=== PATIENT | female | born 1950 | race Asian ===

== ENCOUNTER 2017-01-21 08:30 | Day surgery (SDC) | payer MEDICARE, OTHER ==
[~2017-01-21] VITALS: Ht 165.1 cm; Wt 77.3 kg
[~2017-01-21 08:30] MED LIST: ATEN50TA PO; CALC-51 PO; DICLOFENAC SODIUM 0.1% 2.5 ML OPHTHALMIC SOLUTION OS ONE; FentaNYL CITRATE-PF 100 MCG/2 ML VIAL IVP ONE; LOSA25TA21 PO; MIDAZOLAM HCL 2 MG/2 ML VIAL IVP ONE; MOXIFLOXACIN HCL 0.5% 3 ML OPHTHALMIC SOLUTION OS ONE; RINGERS SOLUTION,LACTATED 500 ML IV ONE; SIMV-260 PO
[2017-01-21] MEDS ORDERED: MOXIFLOXACIN HCL 0.5% 3 ML OPHTHALMIC SOLUTION ONE (09:03)
[2017-01-21] MEDS ORDERED: DICLOFENAC SODIUM 0.1% 2.5 ML OPHTHALMIC SOLUTION ONE (09:03)
[2017-01-21] MEDS ORDERED: PHENYLEPHRINE HCL 2.5% 2 ML OPHTHALMIC SOLUTION ONE (09:03)
[2017-01-21] MEDS ORDERED: TROPICAMIDE 1% 2 ML OPHTHALMIC SOLUTION ONE (09:03)
[2017-01-21] MEDS: PHENYLEPHRINE HCL 2.5% 2 ML OPHTHALMIC SOLUTION OS SCH ×2 (09:33→09:37)
[2017-01-21] MEDS: TROPICAMIDE 1% 2 ML OPHTHALMIC SOLUTION OS SCH ×2 (09:33→09:37)
[2017-01-21] MEDS ORDERED: HYALURONATE SODIUM 12 MG/ML 0.8 ML SYRINGE IO ONE (17:41)
[2017-01-21] MEDS ORDERED: HYALURONATE SOD/CHONDROITIN SOD 0.5 ML VIAL IO ONE (17:41)
[2017-01-21] MEDS ORDERED: LIDOCAINE HCL/PF 1% 2 ML VIAL IM ONE (17:41)
[2017-01-21] MEDS ORDERED: TETRACAINE HCL VISCOUS 0.5% 5 ML OPHTHALMIC SOLUTION OS ONE (17:41)
[2017-01-21] MEDS ORDERED: POVIDONE-IODINE 10% 15 ML SOLUTION UD TP ONE (17:41)
[2017-01-21] MEDS ORDERED: DEXAMETHASONE SOD PHOS 4 MG/ML VIAL IVP ONE (17:41)
== END 2017-01-21 12:25 | disposition home or self-care (01) ==
LOC: SURGERY 08:30
PROVIDERS: ATTEND Specialist
DX: H25.012 Cortical age-related cataract, left eye (principal); I10 Essential (primary) hypertension; E78.00 Pure hypercholesterolemia, unspecified; J45.909 Unspecified asthma, uncomplicated; E66.3 Overweight; Z88.8 Allergy status to other drugs, medicaments and biological substances; Z98.41 Cataract extraction status, right eye
CPT/HCPCS: 66984; C1780; J1100; J2250; J3010; J3490 ×2